=== PATIENT | male | born 1980 | race Caucasian/White ===

== ENCOUNTER 2024-08-04 05:50 | Day surgery (SDC) | payer BC ==
[2024-08-04 06:31] VITALS: RESP 16
[2024-08-04] MEDS: Lactated Ringers 1,000 ML IV SCH (06:34)
[2024-08-04] MEDS ORDERED: propofoL IV ONE (07:28)
[2024-08-04] MEDS ORDERED: Versed 2 MG/2 ML Injection ONE (07:35)
[2024-08-04 08:22] VITALS: PULSE 81; O2SAT 96
[2024-08-04 08:28] VITALS: BP 110/81; TEMP 96.8
--- NOTE | 2024-08-05 14:05 | OP ---
SURGERY DATE/TIME: 08/04/2024 [id number] PREOPERATIVE DIAGNOSES: 1) Change in bowel habits. 2) Family history of colon cancer. POSTOPERATIVE DIAGNOSIS: Rectal polyp. PROCEDURE: Colonoscopy. SURGEON: Mohsen Solomon MD ANESTHESIA: MAC, Jw Rangel CRNA. ESTIMATED BLOOD LOSS: Minimal. SPECIMENS: Hot forceps polypectomy from the rectum. DESCRIPTION OF PROCEDURE AND FINDINGS: After informed written consent was obtained, the patient was taken to the endoscopy suite. He was placed in a left lateral decubitus position, and anesthesia was titrated to desired level of consciousness. Digital rectal exam showed normal sphincter tone and no internal lesions. The scope was inserted into the rectum, and sequentially the entire colonic mucosa was traversed. The level of the cecum was reached and verified under direct visualization of the ileocecal valve. Upon withdrawal, careful mucosal inspection revealed no gross abnormalities until the proximal rectum was reached. Just below the third valve of [place], there was a small sessile polyp in the rectum which was grasped with forceps, cauterized, and removed with good hemostasis following removal, and the entire polyp appeared to be adequately removed. Prior to withdrawal, retroflexion was performed and showed no internal lesions. The scope was removed, and the patient was transferred to the recovery room in good condition. He will follow up in a week for pathology report.
== END 2024-08-04 08:38 | disposition home or self-care (01) ==
LOC: SDC 05:50
PROVIDERS: ATTEND Family Medicine
DX: D12.7 Benign neoplasm of rectosigmoid junction (principal); R19.4 Change in bowel habit; Z80.0 Family history of malignant neoplasm of digestive organs; E11.9 Type 2 diabetes mellitus without complications
CPT/HCPCS: 82947; 93005; J2250; J2704